=== PATIENT | female | born 1945 | race African-American/Black ===

== ENCOUNTER → 2019-10-21 | Outpatient (CLI) | payer OTHER, BC ==
[~2019-10-21] MED LIST: CYMBALTA30 MG PO; FLECAINIDE ACET50 M1 PO; OMEPRAZOLE 20 M20 M1 PO; SYMBICORT160 MCG/4. INH; VENTOLIN HFA 1818 GM INH; XANAX 0.5 MG0.5 MG PO
== END ==
LOC: SJCVC 12:00
DX: I49.3 Ventricular premature depolarization (principal); I38 Endocarditis, valve unspecified; E78.2 Mixed hyperlipidemia; Z79.82 Long term (current) use of aspirin

== ENCOUNTER → 2020-05-30 | Outpatient (CLI) | payer OTHER, BC | LOC: SJCVCIMAG 07:20 | PROVIDERS: ATTEND Internal Medicine Cardiovascular Disease | DX: I08.1 Rheumatic disorders of both mitral and tricuspid valves (principal); I49.3 Ventricular premature depolarization; I10 Essential (primary) hypertension; E78.2 Mixed hyperlipidemia; R00.2 Palpitations ==

== ENCOUNTER → 2020-11-15 | Outpatient (CLI) | payer OTHER, BC | LOC: SJCVCIMAG 06:45 | PROVIDERS: ATTEND Internal Medicine Cardiovascular Disease | DX: R00.0 Tachycardia, unspecified (principal); I49.3 Ventricular premature depolarization; M19.90 Unspecified osteoarthritis, unspecified site; F41.9 Anxiety disorder, unspecified; Z90.49 Acquired absence of other specified parts of digestive tract; Z90.710 Acquired absence of both cervix and uterus; Z98.890 Other specified postprocedural states; Z88.0 Allergy status to penicillin; Z88.8 Allergy status to other drugs, medicaments and biological substances; Z79.899 Other long term (current) drug therapy; Z82.49 Family history of ischemic heart disease and other diseases of the circulatory system ==

== ENCOUNTER → 2021-09-26 | Outpatient (CLI) | payer OTHER, BC | LOC: SJCVC 13:01 | PROVIDERS: ATTEND Internal Medicine Cardiovascular Disease | DX: I49.3 Ventricular premature depolarization (principal); E78.2 Mixed hyperlipidemia; I38 Endocarditis, valve unspecified; Z79.899 Other long term (current) drug therapy; Z88.1 Allergy status to other antibiotic agents; Z88.0 Allergy status to penicillin; Z88.2 Allergy status to sulfonamides; Z88.8 Allergy status to other drugs, medicaments and biological substances; Z82.49 Family history of ischemic heart disease and other diseases of the circulatory system ==